=== PATIENT | female | born 1970 | race Asian ===

== ENCOUNTER 2019-08-21 11:32 | Emergency (ER) | payer OTHER, SELFPAY ==
[2019-08-21 11:49] VITALS: BP 125/74; PULSE 82; RESP 14; TEMP 36.7; O2SAT 96; BMI 21.4
--- NOTE | 2019-08-21 12:33 | ED.FEMALEGU ---
HPI - Female Genitourinary <MADIE Montero-BC - Last Filed: 08/21/19 13:54> General Chief complaint: Urogenital-Female Stated complaint: blood in urine,dizzy Time Seen by Provider: 08/21/19 12:09 Source: patient Mode of arrival: Ambulatory Limitations: no limitations History of Present Illness HPI Narrative: The patient is a 48-year-old female nonsmoker with no pertinent medical history presents with her with a chief complaint of hematuria and dysuria. She states that she started having symptoms Sunday night, with dysuria and frequency. She pushed fluids and took azo, thought she was feeling better and then felt worse this morning. She states that she had dysuria, bladder pressure urgency and frequency, started having bloody urine this morning. She denies any fevers nausea vomiting or diarrhea. She is eating and drinking well. She thinks she might have urinary tract infection. She denies any vaginal discharge. She denies any possibility of . She states she feels tired. She is wondering if she can go surfing this weekend. Related Data Previous Rx's Medication Instructions Recorded nitrofurantoin monohyd/m-cryst 100 mg PO Q12H 7 Days #14 cap 08/21/19 [Macrobid] Allergies Allergy/AdvReac Type Severity Reaction Status Date / Time magnesium salicylate Allergy Mild FROM Verified 08/21/19 11:49 PAMPRIN MAXIMUM PAIN RELIEF pamabrom Allergy Mild FROM Verified 08/21/19 11:49 PAMPRIN MAXIMUM PAIN RELIEF aspirin Allergy Verified 08/21/19 11:49 Review of Systems <CONNER MonteroBC - Last Filed: 08/21/19 13:54> Review of Systems Narrative: GENERAL: Denies chills, fatigue, malaise, fever, sweats. HEENT: Denies sinus pain, ear pain, sore throat, difficulty swallowing, dizziness. RESPIRATORY: Denies dyspnea, cough, wheezing, hemoptysis, sputum. CARDIOVASCULAR: Denies chest pain, palpitations, orthopnea, edema, GASTROINTESTINAL: Denies nausea, vomiting, abdominal pain, diarrhea, constipation, melena. : See HPI MUSCULOSKELETAL: denies weakness, joint pain, or bony pain SKIN: Denies rash, skin lesions, or other NEUROLOGIC: Denies weakness, headache, numbness, change in speech, confusion, seizures, incoordination. PSYCHIATRIC: No concerning psychosocial issues. 12 point review of systems is negative except for those stated above Patient History <TRENT Montero - Last Filed: 08/21/19 13:54> Surgical History (Updated 08/21/19 @ 12:34 by TRENT Montero) History of hysterectomy (Acute) alcohol intake frequency: a few times a week Substance Use Type: does not use Exam <TRENT Montero - Last Filed: 08/21/19 13:54> Narrative Exam Narrative: GENERAL: This is a well-nourished, well-developed patient, in no acute distress HEAD: Atraumatic. Normocephalic. No temporal or scalp tenderness. EYES: Pupils equal round and reactive. Extraocular motions intact. No scleral icterus. No injection or drainage. ENT: Nose without bleeding, purulent drainage or septal hematoma. Throat without erythema, tonsillar hypertrophy or exudate. Uvula midline. Airway patent. NECK: Trachea midline. No JVD or lymphadenopathy. Supple, nontender, no meningeal signs. CARDIOVASCULAR: Regular rate and rhythm RESPIRATORY: Clear to auscultation. Breath sounds equal bilaterally. No wheezes, rales, or rhonchi. No cough. No increased respiratory effort. No accessory muscle use. GASTROINTESTINAL: Abdomen soft, slight suprapubic tenderness to palpation nondistended. No hepato-splenomegaly, or palpable masses. No guarding. EXTREMITIES: No clubbing, cyanosis, or edema. No joint tenderness, effusion, or edema noted. BACK: Nontender without deformity or crepitance. No flank tenderness. NEURO: AOx3. SKIN: No rash or erythema on visible skin Initial Vital Signs Initial Vital Signs: Vital Signs Temperature 98.1 F 08/21/19 11:49 Pulse Rate 82 08/21/19 11:49 Respiratory Rate 14 08/21/19 11:49 Blood Pressure 125/74 08/21/19 11:49 Pulse Oximetry 96 08/21/19 11:49 <Adryan Poon DO - Last Filed: 08/21/19 19:34> Initial Vital Signs Initial Vital Signs: Vital Signs Temperature 98.1 F 08/21/19 11:49 Pulse Rate 82 08/21/19 11:49 Respiratory Rate 14 08/21/19 11:49 Blood Pressure 125/74 08/21/19 11:49 Pulse Oximetry 96 08/21/19 11:49 Course <TRENT Montero - Last Filed: 08/21/19 13:54> Orders Ordered: ED Orders 08/21/19 12:15 Urinalysis and Microscopic Stat Urine Culture Stat 08/21/19 13:11 Complete Blood Count AUTO DIFF Stat Comprehensive Metabolic Panel Stat Vital Signs Vital signs: Vital Signs - 8 hr 08/21/19 11:49 08/21/19 14:14 Temperature 98.1 F Pulse Rate 63 Pulse Rate [Left] 82 Respiratory Rate 14 15 Blood Pressure 113/73 Blood Pressure [Left Arm] 125/74 Pulse Oximetry 96 97 <Adryan Poon DO - Last Filed: 08/21/19 19:34> Orders Ordered: ED Orders 08/21/19 12:15 Urinalysis and Microscopic Stat Urine Culture Stat 08/21/19 13:11 Complete Blood Count AUTO DIFF Stat Comprehensive Metabolic Panel Stat Vital Signs Vital signs: Vital Signs - 8 hr 08/21/19 11:49 08/21/19 14:14 Temperature 98.1 F Pulse Rate 63 Pulse Rate [Left] 82 Respiratory Rate 14 15 Blood Pressure 113/73 Blood Pressure [Left Arm] 125/74 Pulse Oximetry 96 97 MDM - Female Genitourinary <TRENT Montero - Last Filed: 08/21/19 13:54> Lab Data Result diagrams: 08/21/19 13:11 08/21/19 13:11 Labs: Lab Results 08/21/19 08/21/19 08/21/19 Range/Units 12:15 13:11 13:11 WBC 13.8 H (4.5-11.0) X10^3/uL RBC 4.67 (4.0-5.2) X10^6/uL Hgb 15.6 (12.0-16.0) g/dL Hct 46.2 H (36-46) % MCV 98.7 (80-100) fL MCH 33.4 (26-34) PG MCHC 33.8 (30-36) % RDW 13.5 (11.6-14.8) % Plt Count 214 (150-400) X10^3/uL Neut % (Auto) 87.6 H (50-75) % Lymph % (Auto) 9.3 L (25-40) % [place] % (Auto) 2.6 L (3-14) % Eos % (Auto) 0.2 L (2-4) % Baso % (Auto) 0.3 (0-2) % Neut # (Auto) 37059 H (1027-7208) /uL Lymph # (Auto) 1300 (2120-3255) /uL [place] # (Auto) 400 (0-900) /uL Eos # (Auto) 0 (0-450) /uL Baso # (Auto) 0 (0-100) /uL Sodium 140 (137-145) mmol/L Potassium 3.9 (3.4-5.1) mmol/L Chloride 103 (98-107) mmol/L Carbon Dioxide 29 (22-32) mmol/L BUN 7 (7-17) mg/dL Creatinine 0.60 (0.52-1.04) mg/dL Estimated GFR > 60.0 (>60) mL/min BUN/Creatinine Ratio 11.7 (6-22) Glucose 88 (70-100) mg/dL Calcium 9.4 (8.4-10.2) mg/dL Total Bilirubin 0.5 (0.2-1.3) mg/dL AST 26 (14-36) IU/L ALT 16 (<35) IU/L Alkaline Phosphatase 54 (38-126) U/L Total Protein 8.2 (6.3-8.2) g/dL Albumin 4.8 (3.5-5.0) g/dL Globulin 3.4 (1.7-4.1) g/dL Albumin/Globulin Ratio 1.4 (1.0-2.8) Urine Color Red Urine Appearance Cloudy Urine pH 7.5 (4.5-8.0) Ur Specific [place] 1.015 (1.000-1.035) Urine Protein 2+ H (Negative) Urine Glucose (UA) Negative (Negative) g/dL Urine Ketones Negative (NEGATIVE) Urine Occult Blood 3+ H (Negative) Urine Nitrate Negative (Negative) Urine Bilirubin Negative (NEGATIVE) Urine Urobilinogen 0.2 (0.2) E.U./dL Ur Leukocyte Esterase 3+ H (NEGATIVE) Urine RBC >100/hpf H (0-5/HPF) Urine WBC 10-30/hpf H (0-5/HPF) Ur Squamous Epith Cells 1-5 /hpf (0-5/HPF) Ur Transition Epith Cell 1-5/hpf (0-5/HPF) Ur Renal Epithelial Cell 1-5/hpf H (0-1/HPF) Urine Bacteria Few (2-10) H (None) Ur Culture Indicated? Specimen cultured Point of Care Testing Test Results Negative Urine Dip Bedside Urine Glucose Negative Bedside Urine Bilirubin - Negative Bedside Urine Ketone - Negative Urine Specific [place] 1.010 Bedside Urine Occult Blood - Negative Bedside Urine pH 7.0 Bedside Urine Protein ++ 100 Bedside Urine Urobilinogen +/- 1mg Bedside Urine Nitrite - Negative Bedside Urine Leukocytes +++ 500 Esterase MDM Narrative Medical decision making narrative: The patient is a 48-year-old female who presents with a chief complaint of hematuria, dysuria urgency frequency. Urinalysis is very concerning for infection, with leukocyte esterase, bacteria RBCs wbc's. Given that the patient had slight renal epithelial cells in urinalysis/micro, basic labs were obtained. Reassuring that the patient has no signs of systemic illness, is afebrile eating and drinking well. Renal function is within normal limits. Discussed at length pushing fluids, urine cultures pending at this time. Discussed come back to ER for any acute concerns such as and we keep down fluids, high fevers, indications of pyelonephritis. Encourage PCP follow-up in days. Patient has no questions or concerns upon discharge and states understanding of return precautions as well as follow-up care. <Adryan Poon, - Last Filed: 08/21/19 19:34> Lab Data Labs: Lab Results 08/21/19 08/21/19 08/21/19 Range/Units 12:15 13:11 13:11 WBC 13.8 H (4.5-11.0) X10^3/uL RBC 4.67 (4.0-5.2) X10^6/uL Hgb 15.6 (12.0-16.0) g/dL Hct 46.2 H (36-46) % MCV 98.7 (80-100) fL MCH 33.4 (26-34) PG MCHC 33.8 (30-36) % RDW 13.5 (11.6-14.8) % Plt Count 214 (150-400) X10^3/uL Neut % (Auto) 87.6 H (50-75) % Lymph % (Auto) 9.3 L (25-40) % [place] % (Auto) 2.6 L (3-14) % Eos % (Auto) 0.2 L (2-4) % Baso % (Auto) 0.3 (0-2) % Neut # (Auto) 80712 H (8425-9793) /uL Lymph # (Auto) 1300 (0974-1029) /uL [place] # (Auto) 400 (0-900) /uL Eos # (Auto) 0 (0-450) /uL Baso # (Auto) 0 (0-100) /uL Sodium 140 (137-145) mmol/L Potassium 3.9 (3.4-5.1) mmol/L Chloride 103 (98-107) mmol/L Carbon Dioxide 29 (22-32) mmol/L BUN 7 (7-17) mg/dL Creatinine 0.60 (0.52-1.04) mg/dL Estimated GFR > 60.0 (>60) mL/min BUN/Creatinine Ratio 11.7 (6-22) Glucose 88 (70-100) mg/dL Calcium 9.4 (8.4-10.2) mg/dL Total Bilirubin 0.5 (0.2-1.3) mg/dL AST 26 (14-36) IU/L ALT 16 (<35) IU/L Alkaline Phosphatase 54 (38-126) U/L Total Protein 8.2 (6.3-8.2) g/dL Albumin 4.8 (3.5-5.0) g/dL Globulin 3.4 (1.7-4.1) g/dL Albumin/Globulin Ratio 1.4 (1.0-2.8) Urine Color Red Urine Appearance Cloudy Urine pH 7.5 (4.5-8.0) Ur Specific [place] 1.015 (1.000-1.035) Urine Protein 2+ H (Negative) Urine Glucose (UA) Negative (Negative) g/dL Urine Ketones Negative (NEGATIVE) Urine Occult Blood 3+ H (Negative) Urine Nitrate Negative (Negative) Urine Bilirubin Negative (NEGATIVE) Urine Urobilinogen 0.2 (0.2) E.U./dL Ur Leukocyte Esterase 3+ H (NEGATIVE) Urine RBC >100/hpf H (0-5/HPF) Urine WBC 10-30/hpf H (0-5/HPF) Ur Squamous Epith Cells 1-5 /hpf (0-5/HPF) Ur Transition Epith Cell 1-5/hpf (0-5/HPF) Ur Renal Epithelial Cell 1-5/hpf H (0-1/HPF) Urine Bacteria Few (2-10) H (None) Ur Culture Indicated? Specimen cultured Point of Care Testing Test Results Negative Urine Dip Bedside Urine Glucose Negative Bedside Urine Bilirubin - Negative Bedside Urine Ketone - Negative Urine Specific [place] 1.010 Bedside Urine Occult Blood - Negative Bedside Urine pH 7.0 Bedside Urine Protein ++ 100 Bedside Urine Urobilinogen +/- 1mg Bedside Urine Nitrite - Negative Bedside Urine Leukocytes +++ 500 Esterase Discharge Plan Departure Patient Disposition: Home Clinical Impression: Urinary tract infection Qualifiers: Urinary tract infection type: site unspecified Hematuria presence: with hematuria Qualified Code(s): N39.0 - Urinary tract infection, site not specified Discharge Date/Time: 08/21/19 14:15 Instructions: DI for Urinary Tract Infection (UTI) Activity Restrictions/Additional Instructions: I sent a prescription of an antibiotic to [facility] in [place]. Please take this with a yogurt or probiotic. Please rest and push fluids. Please monitor for fever, inability keep down fluids, signs of worsening a come back to the emergency department for any acute concerns. Urine cultures pending at this time we will call you in 2-3 days if results indicate that we need to change antibiotics. Please follow-up with primary care provider. Prescriptions: New nitrofurantoin monohyd/m-cryst [Macrobid] 100 mg capsule 100 mg PO Q12H 7 Days Qty: 14 RF: 0 Referrals: [facility] [Outside]
[2019-08-21 12:42] LABS: Appearance Urine UA CLOUDY; Bilirubin Urine UA NEGATIVE (NEGATIVE); Color Urine UA RED; Glucose Urine UA NEGATIVE (Negative); Ketones Urine UA NEGATIVE (NEGATIVE); Leukocyte Esterase Urine UA 3+ (NEGATIVE); Nitrite Urine UA NEGATIVE (Negative); Occult Blood Urine UA 3+ (Negative); Protein Urine UA 2+ (Negative); Specific Gravity Urine UA 1.015 (1.000-1.035); Urobilinogen Urine UA 0.2 E.U./dL (0.2)
[2019-08-21 12:44] LABS: pH Urine UA 7.5 (4.5-8.0)
[2019-08-21 12:45] LABS: Bacteria Urine Few (2-10); Culture Indicated Urine Specimen Cultured; RBC Urine >100/HPF (0-5/HPF); Renal Epithelial Cells Urine 1-5/HPF (0-1/HPF); Squamous Epithelial Cell Urine 1-5 /HPF (0-5/HPF); Transitional Epi Cells Urine 1-5/HPF (0-5/HPF); WBC Urine 10-30/HPF (0-5/HPF)
[2019-08-21 13:22] LABS: Add Manual Diff / Slide Review NO; Basophils Absolute Auto 0 /uL (0-100); Basophils Percent Auto 0.3 % (0-2); Eosinophils Absolute Auto 0 /uL (0-450); Eosinophils Percent Auto 0.2 % (2-4); Hematocrit 46.2 % (36-46); Hemoglobin 15.6 g/dL (12.0-16.0); Lymphocytes Absolute Auto 1300 /uL (1100-4500); Lymphocytes Percent Auto 9.3 % (25-40); Mean Corpuscular HGB Conc 33.8 % (30-36); Mean Corpuscular Hemoglobin 33.4 PG (26-34); Mean Corpuscular Volume 98.7 fL (80-100); Monocytes Absolute Auto 400 /uL (0-900); Monocytes Percent Auto 2.6 % (3-14); Neutrophils Absolute Auto 12100 /uL (1500-7000); Neutrophils Percent Auto 87.6 % (50-75); Platelet Count 214 X10^3/uL (150-400); Red Blood Cell Count 4.67 X10^6/uL (4.0-5.2); Red Cell Distribution Width 13.5 % (11.6-14.8); White Blood Cell Count 13.8 X10^3/uL (4.5-11.0)
[2019-08-21 13:36] LABS: Alanine Aminotransferase 16 IU/L (<35); Albumin 4.8 g/dL (3.5-5.0); Albumin Globulin Ratio 1.4 (1.0-2.8); Alkaline Phosphatase 54 U/L (38-126); Aspartate Aminotransferase 26 IU/L (14-36); BUN Creatinine Ratio 11.7 (6-22); Bilirubin Total 0.5 mg/dL (0.2-1.3); Blood Urea Nitrogen 7 mg/dL (7-17); Calcium 9.4 mg/dL (8.4-10.2); Carbon Dioxide 29 mmol/L (22-32); Chloride 103 mmol/L (98-107); Estimated Glomerular Filt Rate > 60.0 mL/min (>60); Globulin 3.4 g/dL (1.7-4.1); Glucose 88 mg/dL (70-100); HEMOLYSIS < 15 (0-50); Potassium 3.9 mmol/L (3.4-5.1); Sodium 140 mmol/L (137-145); Total Protein 8.2 g/dL (6.3-8.2)
[2019-08-21 14:14] VITALS: BP 113/73; PULSE 63; RESP 15; O2SAT 97
== END 2019-08-21 14:15 | disposition home or self-care (01) ==
PROVIDERS: Emergency Provider Nurse Practitioner Family
DX: N39.0 Urinary tract infection, site not specified (principal); R31.9 Hematuria, unspecified
CPT/HCPCS: 36415; 80053; 81001; 81003; 81025; 85025; 87077; 87086; 99282; 99283

== ENCOUNTER 2022-08-29 06:39 | Day surgery (SDC) | payer OTHER, SELFPAY ==
[2022-08-23 10:40] VITALS: BMI 22.1
[2022-08-29] VITALS (7 sets, daily range): BP systolic 97–111; BP diastolic 55–75; PULSE 58–93; RESP 12–18; TEMP 36.1–36.7; O2SAT 98–99; BMI 22.3
--- NOTE | 2022-08-29 | PATH_ITS ---
[facility] Accession Number: [id number] No. of containers..01 Tissue . 01 Material submitted: . back - LEFT BACK MASS . 01 Diagnosis: Left Back, Excision: Mature fibroadipose tissue, consistent with lipoma. [facility] 09/01/2022 1128 Local . 01 Electronically signed: . Paul Koenig MD, Dermatopathologist NPI- [id number] . 01 Gross description: . The specimen is received in formalin labeled with the patient's name, , and left back mass, and consists of a yellow, lobulated soft tissue fragment with one surface that is relatively smooth and possibly consistent with a fascial surface, and this surface is inked black. The remaining specimen is inked blue. The specimen measures 11.0 x 7.8 x 2.6 cm. Sectioning reveals a yellow, lobulated, unremarkable cut surface. [employer] Director sections are submitted in cassettes A1-A4. ([id number]) /FRR 08/31/2022 0248 Local . 01 Pathologist provided ICD-10: D17.9 . 01 CPT . 610827 Specimen Comment: A courtesy copy of this report has been sent to [facility] Pathology Performed at: 01 [facility] [address] [facility][note 3], [place], [place] [id number] MD Marc May MD Phone: [phone]
[2022-08-29] MEDS: LACTATED RINGERS 1,000 ML 42 ML IV ×2 (07:12→08:33)
--- NOTE | 2022-08-29 07:50 | PM.PREOP ---
Pre-operative Note Interval Note History & Physical reviewed/Exam performed by Physician: Yes Changes to H&P: No
[2022-08-29] MEDS: CEFAZOLIN 2 GM/100 ML PREMIX 100 ML IV (08:10)
[2022-08-29] MEDS: LIDOCAINE 1% W/EPI 20 ML INJ ×2 (08:16→08:31)
[2022-08-29] MEDS: BUPIVACAINE 0.25% (PF) VIAL 20 ML INJ (08:17)
--- NOTE | 2022-08-29 08:21 | SUR.OPER ---
Lateral on BED, head on pillow, gel axillary roll in place, bottom leg bent with gel pad under knee to foot, upper leg straight and supported with pillows. Upper arm supported by pillows and secured over bottom arm to padded arm board. Safety belt at hip.
--- NOTE | 2022-08-29 18:35 | PM.OP.1 ---
Operative Date/Time/Diagnoses Date of procedure: 08/29/22 Pre-op diagnosis: Lipoma Procedure & Clinicians Same procedure as scheduled: Yes Indications: This is a large symptomatic lipoma in excess of 10 cm in the left posterior back that was symptomatic and Ms. Acosta discussed with me the risks benefits and alternatives and would like to have it excised. Surgeon: Felipa Lambert Anesthesia Type: General Operative Notes Procedure in detail: Patient was taken to the operating room and placed under anesthesia with an LMA by our anesthesiologist Dr. Mihai Guerrier. The area around the left back was prepped and draped in the usual sterile fashion the patient was placed in a right lateral decubitus position. Local anesthesia with lidocaine and bupivacaine with epinephrine in a 50 50 solution infused around the area. A 15 blade scalpel was used to make 10 cm incision along Ashanti's lines overlying the lipoma. Blunt dissection using a hemostat was used to free up the edges of the lipoma, electrocautery was used to continue this dissection along a plane surrounding it. Areas of the lipoma undermined the actual skin incision and the lipoma itself was 15 x 20 cm in size. This was contained in the subcutaneous area. The patient's body habitus was thin and at the bottom of the wound was a layer of fascia and muscle which was not disturbed. The lipoma was removed and the area was checked for hemostasis. The cavity was closed with interrupted 3-0 Vicryl sutures in the subcutaneous layer. Finally the skin was closed with a running 4-0 Monocryl. The lipoma was sent to pathology. And the wound was dressed with Steri-Strips and some gauze with Tegaderm over top of it. Patient tolerated this procedure well and went in good condition to the postoperative care unit. From there she was discharged home with the usual postoperative instructions. Complications: none
== END 2022-08-29 10:05 | disposition home or self-care (01) ==
PROVIDERS: PCP Physician Assistant; Referring Provider Surgery; Visit Provider Surgery
PROC: (CPT 21931; principal; 2022-08-29 07:45)
DX: D17.1 Benign lipomatous neoplasm of skin and subcutaneous tissue of trunk (principal)
CPT/HCPCS: 21931; J0690; J1100; J2250; J2405; J2704; J3010; J3490

== ENCOUNTER 2023-04-20 11:02 | Emergency (ER) | payer OTHER, SELFPAY ==
[2023-04-20 11:05] VITALS: BP 110/61; PULSE 66; RESP 14; TEMP 36.6; O2SAT 99; BMI 21.4
--- NOTE | 2023-04-20 11:12 | ED.EAR ---
HPI - Ear Problem <Anjali Moya PA-C - Last Filed: 04/20/23 11:42> General Chief complaint: Ear Stated complaint: LT ear T-1 feels like water inside/hear echo Time Seen by Provider: 04/20/23 11:11 Source: patient Mode of arrival: Ambulatory History of Present Illness HPI Narrative: 52-year-old female here in the ED for left ear concerns. States it feels like there is water inside and she hears a lot of echoing. 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 States this problem started several weeks ago after a surfing session. States initially her symptom was feeling pulsating sensation like her own heartbeat and this was intermittent. Then she started having itching of the left ear canal which was intermittent and has now resolved. Finally pain started several days ago but then has resolved today. Currently only complaint is the feeling of water inside her ear. She has not noted any discharge from the ear or bleeding. She is chronic allergies and does not take medication for these Related Data Previous Rx's Medication Instructions Recorded docusate sodium 100 mg capsule 100 mg PO BID #20 caps 08/29/22 (Colace) ibuprofen 600 mg tablet 600 mg PO QID #20 tabs 08/29/22 fluticasone propionate 50 2 spray intranasal DAILY #16 grams 04/20/23 mcg/actuation nasal spray,suspension (Flonase Allergy Relief) loratadine-pseudoephedrine ER 10 1 tab PO DAILY #14 tabs 04/20/23 mg-240 mg tablet,extended [id number] (Claritin-D 24 Hour) Allergies Allergy/AdvReac Type Severity Reaction Status Date / Time magnesium salicylate Allergy Mild FROM Verified 04/20/23 11:09 PAMPRIN MAXIMUM PAIN RELIEF-nausea pamabrom Allergy Mild FROM Verified 04/20/23 11:09 PAMPRIN MAXIMUM PAIN RELIEF-nausea aspirin Allergy Unknown Nausea Verified 04/20/23 11:09 Review of Systems <Anjali Moya PA-C - Last Filed: 04/20/23 11:42> Review of Systems ROS Unobtainable: All systems reviewed & are unremarkable except as noted in HPI and below Patient History <Anjali Moya PA-C - Last Filed: 04/20/23 11:42> Medical History (Updated 04/20/23 @ 11:32 by Anjali Moya PA-C) Lipoma Surgical History History of hysterectomy Social History household members: spouse Smoking Status: Never smoker alcohol intake: current Smoking Status: Never smoker alcohol intake frequency: a few times a week Substance Use Type: does not use Exam <Anjali Moya PA-C - Last Filed: 04/20/23 11:42> Narrative Exam Narrative: GENERAL: [52] year old patient appears stated age. Well-developed patient, in no acute distress. HEAD: Atraumatic. Normocephalic. EYES: Pupils equal round and reactive. Extraocular motions intact. No scleral icterus. No injection or drainage. ENT: Nose without bleeding, purulent drainage. Throat without erythema, tonsillar hypertrophy or exudate. Airway patent. Bilateral ear canals clear with no purulent drainage or bleeding. Bilateral TMs are pearly valdes with no bulging or erythema. No pain on ear traction. No mastoid tenderness. ? Possible clear effusion behind left TM. NECK: Trachea midline. Non tender RESPIRATORY: Respiratory rate and effort normal EXTREMITIES: No edema or joint tenderness. NEURO: AOx3. SKIN: No rash or erythema of visible areas Initial Vital Signs Initial Vital Signs: Vital Signs Temperature 98 F 04/20/23 11:05 Pulse Rate 66 04/20/23 11:05 Respiratory Rate 14 04/20/23 11:05 Blood Pressure 110/61 04/20/23 11:05 Pulse Oximetry 99 04/20/23 11:05 Oxygen Delivery Method Room Air 04/20/23 11:05 <Annia Smith DO - Last Filed: 04/21/23 09:35> Initial Vital Signs Initial Vital Signs: Vital Signs Temperature 98 F 04/20/23 11:05 Pulse Rate 66 04/20/23 11:05 Respiratory Rate 14 04/20/23 11:05 Blood Pressure 110/61 04/20/23 11:05 Pulse Oximetry 99 04/20/23 11:05 Oxygen Delivery Method Room Air 04/20/23 11:05 Course <Anjali Moya PA-C - Last Filed: 04/20/23 11:42> Vital Signs Vital signs: Vital Signs - 8 hr 04/20/23 11:05 Temperature 98 F Pulse Rate 66 Respiratory Rate 14 Blood Pressure 110/61 Pulse Oximetry 99 Oxygen Delivery Method Room Air <Annia Smith DO - Last Filed: 04/21/23 09:35> Vital Signs Vital signs: Vital Signs - 8 hr 04/20/23 11:05 Temperature 98 F Pulse Rate 66 Respiratory Rate 14 Blood Pressure 110/61 Pulse Oximetry 99 Oxygen Delivery Method Room Air Medical Decision Making <Anjali Moya PA-C - Last Filed: 04/20/23 11:42> MDM Narrative Medical decision making narrative: 52-year-old female who is a avid surfer here in the ED for left ear concerns. States she feels like there is water in her ear and hears an echo. She did have pain the last few days but today it is better. She denies any drainage from the ear or any fevers. She has chronic allergies and has had some recent cold-like symptoms as well as a long flight to and from [place] recently. On exam her ear canals bilaterally are clear with no signs of otitis externa. Bilateral tympanic membranes are pearly valdes with no erythema or bulging. There is possibly some clear fluid noted behind the left TM but otherwise her ear exam is unremarkable. This is consistent with Eustachian tube dysfunction. There are no signs of acute infection, there is no mastoid tenderness, there is no prominent lymphadenopathy or any red flag symptoms. Her vital signs are stable. Will treat with Flonase and Claritin D and have her follow up with PCP if not improving. [] Multiple etiologies for patient's symptoms considered including, but not limited to: Otitis media, otitis externa, mastoiditis, foreign body, URI, Eustachian tube dysfunction Prior Charts reviewed: None Labs reviewed and interpreted by myself: None Imaging reviewed: None Consultations: None Findings and discharge diagnosis discussed with patient/family followed by verbalization of understanding Return precautions discussed with patient/family whom verbalize understanding of diagnosis and plan Discharge Plan Departure Patient Disposition: Home Clinical Impression: ETD (eustachian tube dysfunction) Qualifiers: Laterality: left Qualified Code(s): H69.92 - Unspecified Eustachian tube disorder, left ear Instructions: DI for Eustachian Tube Dysfunction-Adult Activity Restrictions/Additional Instructions: You have been diagnosed with Eustachian tube dysfunction which is ineffective draining and clearing of fluid behind her eardrum. This is likely caused by combination of your frequent swimming, chronic allergies, recent long flight, etc. please take medications as prescribed and follow up with your PCP if you are not improving in 5-7 days. If you have sudden onset of severe ear pain with a high fever or other new or worsening symptoms please return to the ED. Prescriptions: New fluticasone propionate [Flonase Allergy Relief] 50 mcg/actuation spray,suspension 2 spray intranasal DAILY Qty: 16 0RF Rx Instructions: administer into each nostril Claritin-D 24 Hour 10-240 mg tablet extended release 24 hr 1 tab PO DAILY Qty: 14 0RF No Action ibuprofen 600 mg tablet 600 mg PO QID Qty: 20 1RF Rx Instructions: Take 4 times a day with food for the next 3-4 days. If you need additional pain medicine then take the [place] in between times. docusate sodium [Colace] 100 mg capsule 100 mg PO BID Qty: 20 0RF Rx Instructions: Take while taking [place] for pain to prevent constipation, a common side effect of this medication Referrals: Michaela Dey PA-C [Primary Care Provider] - Stand Alone Forms: Patient Portal/API ED Sign-out <Annia Smith DO - Last Filed: 04/21/23 09:35> Cosign ED Attending Sony Attestation: I was immediately available in the department for consultation. Documentation has been reviewed.
== END 2023-04-20 11:35 | disposition home or self-care (01) ==
PROVIDERS: Emergency Provider Physician Assistant; PCP Physician Assistant
DX: H69.92 Unspecified Eustachian tube disorder, left ear (principal)
CPT/HCPCS: 99281